=== PATIENT | female | born 2005 | race Caucasian/White ===

== ENCOUNTER 2024-01-27 15:07 | Outpatient (CLI) | payer OTHER, SELFPAY ==
[2024-01-28 00:09] LABS: Chlamydia DNA Amplified* NOT DETECTED (No Detected); GC DNA Amplified* NOT DETECTED (No Detected)
== END 2024-01-27 15:08 | disposition home or self-care (01) ==
LOC: NFLDUCREF 15:08
PROVIDERS: Visit Provider Physician Assistant
DX: R30.0 Dysuria (principal); Z11.3 Encounter for screening for infections with a predominantly sexual mode of transmission
CPT/HCPCS: 87086; 87491; 87591

== ENCOUNTER 2024-08-25 17:09 | Outpatient (CLI) | payer OTHER, SELFPAY ==
--- OUTSIDE RECORDS SUMMARY | 2024-08-25 17:10 | XMS_ITS | Continuity of Care Document ---
Author Name [facility] Organization [facility] Care Team Providers Care Manager Primary Name Role Phone [facility] Unavailable Unavailable Medications Combined list of outpatient medications from Department of [facility] and [facility] facilities.Medications provided include 1) outpatient medications from the last 15 months, and 2) patient-reported medications. Medication Details Route Status Patient Instructions Prescription Expires Prescription Number Last Dispense Date Ordering Provider Order Date Order Qty Source albuterol 90 mcg inhaler [8.5g] See Instruct ions, # 8.5 g, 0 total refill(s ), Hard Stop Ordered 04/26/2025 8.5 Ambul at [facility] Pharmac y EPINEPHrine (eqv-epi-pe n) 0.3mg autoinjecto r kit [2EA] See Instruct ions, # 2 EA, 0 total refill(s ), Hard Stop Ordered 02/20/2025 2.0 Ambul at ory Pharmac y FLUCONAZOLE (FLUCONAZOL E), 150 MG, TABLET, ORAL, [employer] PHARMA L, 12 ea. BLIST PACK Active [id number] 4 2023 2 Pharmac y Data Transac tion Service Facilit y Allergies, Adverse Reactions, Alerts Combined list of allergies from [facility] and [facility] facilities. It does not include entries that were removed or entered in error. Substance Category Reaction Severity Reaction type Status Date Reported Comments Source Peanuts Drug allergy Active Ambulatory Pharmacy Vital Signs Combined list of inpatient and outpatient Vital Signs from Department of [employer] and [facility], ranging from 12 months to all on record, depending upon the facility. Vital Sign Value Date Comments Source No data available for this section Ambulatory Pharmacy Encounters Combined list of: 1) Encounters from Department of Veterans Affairs facilities going back up to thelast 18 months. 2) Encounters from the Department of [facility] facilities going back up to 280 months. Location Location Details Encounter Type Encounter Number Reason For Visit Attending Provider ADM Date DC Date Status Disposition Source Ambulator y Pharmacy Lifetime Pharmacy [id number] 02/21 Ambulat ory Pharmac y Procedures Combined list of: 1) Procedures from Department of [facility] facilities going back up to thelast 18 months, not all [place] non-surgical procedures are included; 2) All procedures from the Department of Defense facilities. Procedure Procedure Type Code Date Perfomer Comments Sourc e No data available for this section Ambulatory P harmacy Social History Combined list of available smoking, tobacco, and other social history from Department of Defense and [facility] facilities. Social History Type Response Date Comment Sourc e This section is an empty social history section. DoD Assessment and Plan Combined list of future care activities from Department of Defense and Veterans Affairs facilities (e.g., assessment and plan notes, appointments, orders, and referrals). Additional future care activities may be listed in the Plan of Care section. Result Assessment and Plan Date Source Assessment and Plan No data available for this section 08/25/2024 Ambulatory Pharmacy Functional Status Combined list of recent functional and cognitive assessments recorded at [facility] of [facility] and [facility] ([place] Functional Blodgett Measurement (FIM) Scale: 1 = Total Assistance (Subject = 0% +), 2 = Maximal Assistance (Subject = 25% +), 3 = Moderate Assistance (Subject = 50% +), 4 = Minimal Assistance (Subject = 75% +), 5 = Supervision, 6 = Modified Blodgett (Device), 7 = Complete Blodgett (Timely, Safely). Assessment Date/Time Source Assessment Type Assessment Skill Assessment Score Assessment Details No data available for this section
--- OUTSIDE RECORDS SUMMARY | 2024-08-25 17:10 | XMS_ITS | Clinical Summary ---
Author Organization [facility] Address [address] [place], [place] [id number] Care Team Providers Care Supervisor Cutting And Boning Name Role Phone Pcp, No Primary Care Provider Unavailabl e Allergies No known active allergies Medications Medication Sig Dispensed Refills Start Date End Date Status B Complex Vitamins (vitamin B complex) tablet Take 1 tablet by mouth 1 (one) time each day. Active Ascorbic Acid (VITAMIN C ER PO) Take by mouth. Active Magnesium 500 MG tablet Take by mouth. Active VITAMIN D-VITAMIN K PO Take by mouth. Active Active Problems Problem Noted Date Diagnosed Date Bleeding after intercourse 02/23/2024 Assessment & Plan (02/23/2024 11:52 AM MDT): - No clear etiology identified on exam - Nuswab collected to rule out infectious causes, STDs - IUD strings seen, recommend US to confirm correct positioning - All questions answered. Family History Relation Name Status Comments Brother Alive Father Alive Mother Alive Social History Tobacco Use Types Packs/Day Years Used Date Smoking Tobacco: Never Smokeless Tobacco: Never Tobacco Cessation:Counseling Given: Not Answered Alcohol Use Standard Drinks/Week Comments Never 0 (1 standard drink = 0.6 oz pur e alcohol) Sex and Gender Information Value Date Recorded Sex Assigned at Not on file Gender Identity Not on file Sexual Orientation Not on file Last Filed Vital Signs Vital Sign Reading Time Taken Comments Blood Pressure 120/80 02/23/2024 11:07 AM MDT Pulse - - Temperature - - Respiratory Rate - - Oxygen Saturation - - Inhaled Oxygen Concentration - - Weight 66 kg (145 lb 9.6 oz) 02/23/2024 11:07 AM MDT Height 172.7 cm (5' 8) 02/23/2024 11:07 AM MDT Body Mass Index 22.14 02/23/2024 11:07 AM MDT Plan of Treatment Health Maintenance Due Date Last Done Comments HIV Screening 2004 Annual Physical 05/14/2007 COVID-19 Vaccine ( season) 2024 Influenza Vaccine (#1) 2024 09/12/2019, 2014 DTaP/Tdap/Td Vaccines (7 - Td or Tdap) 12/11/2025 12/11/2015, 11/20/2009, 02/09/2006, Additional history exists Zoster Vaccines (1 of 2) 2054 Hepatitis B Vaccines Completed 05/12/2005, 03/19/2005, 01/27/2005, Additional history exists Pneumococcal: Pediatrics (0 to 5 Yrs) and At-Risk Patients (6 to 64 Years) Completed 11/25/2005, 05/12/2005, 03/19/2005, Additional history exists MMR Vaccines Completed 12/06/2008, 02/09/2006 Varicella Vaccines Completed 12/06/2008, 11/25/2005 Hepatitis A Vaccines Completed 11/25/2012, 11/25/2011, 2004 HPV Vaccines Completed 01/05/2019, 12/28/2017 Meningococcal Vaccine Aged Out 05/31/2023, 016 No longer eligible based on patient's age to complete this topic Respiratory Syncytial Virus (RSV) <20 months Aged Out No longer eligible based on patient's age to complete this topic Care Teams Supervisor Cutting And Boning Relationship Specialty Start Date End Date Pcp, No PCP - General 02/01/24
--- OUTSIDE RECORDS SUMMARY | 2024-08-25 17:10 | XMS_ITS | Referral Summary ---
Author Organization [facility] Address [address] [place] [address] Care Team Providers Care Manager Personal Name Role Phone Unavailable Primary Care Provider Unavailabl e Allergies No known active allergies Medications No known medications Active Problems Problem Noted Date Diagnosed Date Concussion with no loss of consciousness, initia l encounter 09/18/2019 Social History Tobacco Use Types Packs/Day Years Used Date Smoking Tobacco: Never Assessed Comments Unknown Sex and Gender Information Value Date Recorded Sex Assigned at Not on file Legal Sex Female 6:21 AM PST Gender Identity Not on file Sexual Orientation Not on file Plan of Treatment Not on file Procedures Procedure Name Priority Date/Time Associated Diagnosis Comments PANORAMIC RADIOGRAPHIC IMAGE Routine 03/22/2023 2:00 PM MDT PROPHYLAXIS - ADULT Routine 03/22/2023 2 :00 PM MDT INTRAORAL - COMPREHENSIVE SERIES OF RADIOGRAPHIC IMAGES Routine 03/22/2023 2:00 PM MDT COMPREHENSIVE ORAL EVALUATION - NEW OR ESTABLISHED PATIENT Routine 03/22/2023 2:00 PM MDT TOPICAL APPLICATION OF FLUORIDE VARNISH Routine 09/08/2022 2:00 PM MDT from Last 3 Months or Most Recently Relevant to Health Maintenance Insurance [facility] [employer] KISHORE CHEN [id number] [facility] FEDERAL KISHORE CHEN [id number]
--- OUTSIDE RECORDS SUMMARY | 2024-08-25 17:10 | XMS_ITS | Clinical Summary ---
Author Organization [facility] Address [address] [place] [address] Care Team Providers Care Sampler And Test Preparer Name Role Phone Unavailable Primary Care Provider [...] Orientation Not on file Plan of Treatment Health Maintenance Due Date Last Done Comments Fluoride Varnish 03/09/2023 09/08/2022, , 08/08/2021, Additional history exists Dental Oral Exam 09/22/2023 03/22/2023, 09/2022, 02/25/2022, Additional history exists Dental Prophylaxis 09/22/2023 03/22/2023, 1 , 02/25/2022, Additional history exists Dental X-Ray: Bitewings 09/22/2023 03/22/2023 Dental X-Ray: Full Mouth 03/24/2026 03/23/2023, 04/2 02/2023 Dental X-Ray: Panoramic 03/24/2026 03/23/20, 03/22/2023, 08/08/2021, Additional history exists Procedures Procedure Name Priority Date/Time Associated Diagnosis [...] Most Recently Relevant to Health Maintenance Insurance KISHORE CHEN [id number] [facility] KISHORE CHEN [id number]
--- OUTSIDE RECORDS SUMMARY | 2024-08-25 17:11 | XMS_ITS | CCD ---
Author Organization [facility] Address [address] [place] [address] Care Team Providers Care Development And Housing Director Name Role Phone Unavailable Primary Care Provider [...]
--- OUTSIDE RECORDS SUMMARY | 2024-08-25 17:11 | XMS_ITS ---
Author Organization [facility] [place] [place] Address [address] [place] [address] Care Team Providers Care Water Purification Chemist Name Role Phone Unavailable Unavailable Unavailable Surgery Details Not on file Complications Check Surgery Details section. Procedure Estimated Blood Loss Check Surgery Details section. Procedure Findings Check Surgery Details section. Procedure Specimens Taken Check Surgery Details section.
--- OUTSIDE RECORDS SUMMARY | 2024-08-25 17:11 | XMS_ITS | Encounter Summary ---
Author Organization [facility] Address [address] [place] [address] Care Team Providers Care Comic Book Designer Name Role Phone Unavailable Primary Care Provider Unavailabl e Prior Encounters Date Type Department Care Team Description 03/22/2023 2:00 PM MDT Office Visit [facility] [address] [place] [phone] Zev Santos 09/08/2022 2:00 PM MDT Office Visit [facility] [address] [place] [phone] Bentley Baugh, VENKATESH MS 02/25/2022 Travel 02/25/2022 10:00 AM MDT Office Visit [facility] [address] [place] [phone] Bentley Baugh, VENKATESH MS 12/18/2019 Converted 13x Documents [facility] [address] [place] [phone] <No scans attached> 12/18/2019 Converted CPS Chart Documents [facility] [address] [place] [phone] <No scans attached> 12/18/2019 Converted CPS Chart Documents [facility] [address] [place] [phone] <No scans attached> 12/18/2019 Converted CPS Chart Documents [facility] [address] [place] [phone] <No scans attached> 12/18/2019 Converted 13x Documents [facility] [address] [phone] <No scans attached> 12/18/2019 Converted 13x Documents [facility] [address] [place] [address] <No scans attached> Plan of Treatment Not on file Procedures Procedure Name Priority Date/Time Associated Diagnosis Comments PROPHYLAXIS - ADULT Routine 03/22/2023 2 :00 PM MDT INTRAORAL PHOTO Routine 03/22/2023 2:00 PM MDT INTRAORAL PHOTO Routine 03/22/2023 2:00 PM MDT INTRAORAL PHOTO Routine 03/22/2023 2:00 PM MDT INTRAORAL PHOTO Routine 03/22/2023 2:00 PM MDT PANORAMIC RADIOGRAPHIC IMAGE Routine 03/22/2023 2:00 PM MDT INTRAORAL - COMPREHENSIVE SERIES OF RADIOGRAPHIC IMAGES Routine 03/22/2023 2:00 PM MDT COMPREHENSIVE ORAL EVALUATION - NEW OR ESTABLISHED PATIENT Routine 03/22/2023 2:00 PM MDT PERIODIC ORAL EVALUATION - ESTABLISHED PATIENT Routine 09/08/2022 2:00 PM MDT BITEWINGS - FOUR RADIOGRAPHIC IMAGES Routine 09/08/2022 2:00 PM MDT SINGLE X-RAY Routine 09/08/2022 2:00 PM MDT PROPHYLAXIS - ADULT Routine 09/08/2022 2 :00 PM MDT TOPICAL APPLICATION OF FLUORIDE VARNISH Routine 09/08/2022 2:00 PM MDT ORAL HYGIENE INSTRUCTIONS Routine 2021 2:00 PM MDT ADDITIONAL X-RAY Routine 09/08/2022 2:00 PM MDT PROPHYLAXIS - CHILD Routine 02/25/2022 1 0:00 AM MDT TOPICAL APPLICATION OF FLUORIDE VARNISH Routine 02/25/2022 10:00 AM MDT ORAL HYGIENE INSTRUCTIONS Routine 2021 10:00 AM MDT PERIODIC ORAL EVALUATION - ESTABLISHED PATIENT Routine 02/25/2022 10:00 AM MDT ORAL SURG CONSULT Routine 10/22/2021 1:0 0 AM MST 32 REMOVAL OF IMPACTED TOOTH - COMPLETELY BONY Routine 10/22/2021 1:00 AM MST 17 REMOVAL OF IMPACTED TOOTH - COMPLETELY BONY Routine 10/22/2021 1:00 AM MST 16 REMOVAL OF IMPACTED TOOTH - COMPLETELY BONY Routine 10/22/2021 1:00 AM MST 1 REMOVAL OF IMPACTED TOOTH - COMPLETELY BONY Routine 10/22/2021 1:00 AM MST THERAPEUTIC PARENTERAL DRUGS, TWO OR MORE ADMINISTRATIONS, DIFFERENT MEDICATIONS Routine 10/22/2021 1:00 AM MST DEEP SEDATION/GENERAL ANESTHESIA ? EACH SUBSEQUENT 15 MINUTE INCREMENT Routine 10/22/2021 1:00 AM MST DEEP SEDATION/GENERAL ANESTHESIA ? EACH SUBSEQUENT 15 MINUTE INCREMENT Routine 10/22/2021 1:00 AM MST DEEP SEDATION/GENERAL ANESTHESIA ? FIRST 15 MINUTES Routine 10/22/2021 1:00 AM MST TOPICAL APPLICATION OF FLUORIDE VARNISH Routine 08/08/2021 1:00 AM MDT PROPHYLAXIS - CHILD Routine 08/08/2021 1 :00 AM MDT ORAL HYGIENE INSTRUCTIONS Routine 2020 1:00 AM MDT PANORAMIC RADIOGRAPHIC IMAGE Routine 08/08/2021 1:00 AM MDT BITEWINGS - FOUR RADIOGRAPHIC IMAGES Routine 08/08/2021 1:00 AM MDT ADDITIONAL X-RAY Routine 08/08/2021 1:00 AM MDT SINGLE X-RAY Routine 08/08/2021 1:00 AM MDT PERIODIC ORAL EVALUATION - ESTABLISHED PATIENT Routine 08/08/2021 1:00 AM MDT TOPICAL APPLICATION OF FLUORIDE VARNISH Routine 07/04/2020 1:00 AM MDT PROPHYLAXIS - CHILD Routine 07/04/2020 1 :00 AM MDT ORAL HYGIENE INSTRUCTIONS Routine 2019 1:00 AM MDT BITEWINGS - FOUR RADIOGRAPHIC IMAGES Routine 07/04/2020 1:00 AM MDT ADDITIONAL X-RAY Routine 07/04/2020 1:00 AM MDT SINGLE X-RAY Routine 07/04/2020 1:00 AM MDT PERIODIC ORAL EVALUATION - ESTABLISHED PATIENT Routine 07/04/2020 1:00 AM MDT TOPICAL APPLICATION OF FLUORIDE VARNISH Routine 01/23/2020 1:00 AM MST PROPHYLAXIS - CHILD Routine 01/23/2020 1 :00 AM MST ORAL HYGIENE INSTRUCTIONS Routine 2019 1:00 AM MST PERIODIC ORAL EVALUATION - ESTABLISHED PATIENT Routine 01/23/2020 1:00 AM MST MISSED APPOINTMENT Routine 01/17/2020 1: 00 AM MST TREATMENT COMPLETE Routine 01/16/2020 1: 00 AM MST PERIODIC ORTHODONTIC TREATMENT VISIT Routine 12/26/2019 1:00 AM MST PERIODIC ORTHODONTIC TREATMENT VISIT Routine 11/28/2019 1:00 AM MST PERIODIC ORTHODONTIC TREATMENT VISIT Routine 10/31/2019 1:00 AM MST PERIODIC ORTHODONTIC TREATMENT VISIT Routine 09/25/2019 1:00 AM MDT CANCELLED APPOINTMENT Routine 09/11/2019 1:00 AM MDT PERIODIC ORTHODONTIC TREATMENT VISIT Routine 08/24/2019 1:00 AM MDT PERIODIC ORTHODONTIC TREATMENT VISIT Routine 07/26/2019 1:00 AM MDT TOPICAL APPLICATION OF FLUORIDE VARNISH Routine 07/11/2019 1:00 AM MDT PROPHYLAXIS - CHILD Routine 07/11/2019 1 :00 AM MDT ORAL HYGIENE INSTRUCTIONS Routine 2018 1:00 AM MDT BITEWINGS - FOUR RADIOGRAPHIC IMAGES Routine 07/11/2019 1:00 AM MDT ADDITIONAL X-RAY Routine 07/11/2019 1:00 AM MDT SINGLE X-RAY Routine 07/11/2019 1:00 AM MDT PERIODIC ORAL EVALUATION - ESTABLISHED PATIENT Routine 07/11/2019 1:00 AM MDT PERIODIC ORTHODONTIC TREATMENT VISIT Routine 06/27/2019 1:00 AM MDT PERIODIC ORTHODONTIC TREATMENT VISIT Routine 05/22/2019 1:00 AM MDT PERIODIC ORTHODONTIC TREATMENT VISIT Routine 04/27/2019 1:00 AM MDT PERIODIC ORTHODONTIC TREATMENT VISIT Routine 03/23/2019 1:00 AM MDT PERIODIC ORTHODONTIC TREATMENT VISIT Routine 02/22/2019 1:00 AM MDT CANCELLED APPOINTMENT Routine 02/09/2019 1:00 AM MDT PERIODIC ORTHODONTIC TREATMENT VISIT Routine 01/26/2019 1:00 AM MST TOPICAL APPLICATION OF FLUORIDE VARNISH Routine 01/11/2019 1:00 AM MST PROPHYLAXIS - CHILD Routine 01/11/2019 1 :00 AM MST ORAL HYGIENE INSTRUCTIONS Routine 2018 1:00 AM MST PERIODIC ORAL EVALUATION - ESTABLISHED PATIENT Routine 01/11/2019 1:00 AM MST PERIODIC ORTHODONTIC TREATMENT VISIT Routine 01/02/2019 1:00 AM MST CANCELLED APPOINTMENT Routine 12/26/2018 1:00 AM MST PERIODIC ORTHODONTIC TREATMENT VISIT Routine 11/28/2018 1:00 AM MST CANCELLED APPOINTMENT Routine 11/24/2018 1:00 AM MST PERIODIC ORTHODONTIC TREATMENT VISIT Routine 10/26/2018 1:00 AM MST PERIODIC ORTHODONTIC TREATMENT VISIT Routine 09/08/2018 1:00 AM MDT ORAL-B ESSENTIAL KIT Routine 07/27/2018 1:00 AM MDT NON-CONTRACT ONLY - MISCELLANEOUS ORTHODONTIC PROCEDURE Routine 07/27/2018 1:00 AM MDT NON-CONTRACT ONLY - MISCELLANEOUS ORTHODONTIC PROCEDURE Routine 07/27/2018 1:00 AM MDT INTRAORAL PHOTO Routine 07/27/2018 1:00 AM MDT SELF-LIGATING BRACKETS Routine 8 1:00 AM MDT 2D CEPHALOMETRIC RADIOGRAPHIC IMAGE ? ACQUISITION, MEASUREMENT AND ANALYSIS Routine 07/27/2018 1:00 AM MDT PANORAMIC RADIOGRAPHIC IMAGE Routine 07/27/2018 1:00 AM MDT COMPREHENSIVE ORTHODONTIC TREATMENT OF THE ADOLESCENT DENTITION - 18M Routine 07/27/2018 1:00 AM MDT PRE-ORTHODONTIC TREATMENT EXAMINATION TO MONITOR GROWTH AND DEVELOPMENT Routine 07/07/2018 1:00 AM MDT TOPICAL APPLICATION OF FLUORIDE VARNISH Routine 07/06/2018 1:00 AM MDT PROPHYLAXIS - CHILD Routine 07/06/2018 1 :00 AM MDT ORAL HYGIENE INSTRUCTIONS Routine 2017 1:00 AM MDT 18 SEALANT REPAIR ? PER TOOTH Routine 07/06/2018 1:00 AM MDT 15 SEALANT REPAIR ? PER TOOTH Routine 07/06/2018 1:00 AM MDT 2 SEALANT REPAIR ? PER TOOTH Routine 07/06/2018 1:00 AM MDT BITEWINGS - FOUR RADIOGRAPHIC IMAGES Routine 07/06/2018 1:00 AM MDT PERIODIC ORAL EVALUATION - ESTABLISHED PATIENT Routine 07/06/2018 1:00 AM MDT TOPICAL APPLICATION OF FLUORIDE VARNISH Routine 01/05/2018 1:00 AM MST PROPHYLAXIS - CHILD Routine 01/05/2018 1 :00 AM MST ORAL HYGIENE INSTRUCTIONS Routine 2017 1:00 AM MST 18 SEALANT 2ND MOLAR Routine 01/05/2018 1:00 AM MST 15 SEALANT 2ND MOLAR Routine 01/05/2018 1:00 AM MST 2 SEALANT 2ND MOLAR Routine 01/05/2018 1 :00 AM MST BITEWINGS - FOUR RADIOGRAPHIC IMAGES Routine 01/05/2018 1:00 AM MST PERIODIC ORAL EVALUATION - ESTABLISHED PATIENT Routine 01/05/2018 1:00 AM MST TOPICAL APPLICATION OF FLUORIDE VARNISH Routine 06/30/2017 1:00 AM MDT PROPHYLAXIS - CHILD Routine 06/30/2017 1 :00 AM MDT ORAL HYGIENE INSTRUCTIONS Routine 2016 1:00 AM MDT BITEWINGS - FOUR RADIOGRAPHIC IMAGES Routine 06/30/2017 1:00 AM MDT PERIODIC ORAL EVALUATION - ESTABLISHED PATIENT Routine 06/30/2017 1:00 AM MDT INHALATION OF NITROUS OXIDE/ANALGESIA, ANXIOLYSIS Routine 05/14/2017 1:00 AM MDT C EXTRACTION, ERUPTED TOOTH OR EXPOSED ROOT (ELEVATION AND/OR FORCEPS REMOVAL) Routine 05/14/2017 1:00 AM MDT A EXTRACTION, ERUPTED TOOTH OR EXPOSED ROOT (ELEVATION AND/OR FORCEPS REMOVAL) Routine 05/14/2017 1:00 AM MDT ADDITIONAL X-RAY Routine 05/14/2017 1:00 AM MDT SINGLE X-RAY Routine 05/14/2017 1:00 AM MDT PITCH FLAKER CONSULTATION Routine 2016 1:00 AM MDT PRE-ORTHODONTIC TREATMENT EXAMINATION TO MONITOR GROWTH AND DEVELOPMENT Routine 05/11/2017 1:00 AM MDT LIMITED ORAL EVALUATION - PROBLEM FOCUSED Routine 04/28/2017 1:00 AM MDT PANORAMIC RADIOGRAPHIC IMAGE Routine 04/28/2017 1:00 AM MDT SINGLE X-RAY Routine 04/28/2017 1:00 AM MDT TOPICAL APPLICATION OF FLUORIDE VARNISH Routine 12/30/2016 1:00 AM MST PROPHYLAXIS - CHILD Routine 12/30/2016 1 :00 AM MST ORAL HYGIENE INSTRUCTIONS Routine 2016 1:00 AM MST PERIODIC ORAL EVALUATION - ESTABLISHED PATIENT Routine 12/30/2016 1:00 AM MST BITEWINGS - FOUR RADIOGRAPHIC IMAGES Routine 10/16/2016 1:00 AM MST TOPICAL APPLICATION OF FLUORIDE VARNISH Routine 06/24/2016 1:00 AM MDT PROPHYLAXIS - CHILD Routine 06/24/2016 1 :00 AM MDT ORAL HYGIENE INSTRUCTIONS Routine 2015 1:00 AM MDT PERIODIC ORAL EVALUATION - ESTABLISHED PATIENT Routine 06/24/2016 1:00 AM MDT TOPICAL APPLICATION OF FLUORIDE VARNISH Routine 12/10/2015 1:00 AM MST PROPHYLAXIS - CHILD Routine 12/10/2015 1 :00 AM MST ORAL HYGIENE INSTRUCTIONS Routine 2015 1:00 AM MST PERIODIC ORAL EVALUATION - ESTABLISHED PATIENT Routine 12/10/2015 1:00 AM MST 30 SEALANT 1ST MOLAR Routine 06/10/2015 1:00 AM MDT 19 SEALANT 1ST MOLAR Routine 06/10/2015 1:00 AM MDT 14 SEALANT 1ST MOLAR Routine 06/10/2015 1:00 AM MDT 3 SEALANT 1ST MOLAR Routine 06/10/2015 1 :00 AM MDT TOPICAL APPLICATION OF FLUORIDE VARNISH Routine 06/07/2015 1:00 AM MDT PROPHYLAXIS - CHILD Routine 06/07/2015 1 :00 AM MDT COMPREHENSIVE ORAL EVALUATION - NEW OR ESTABLISHED PATIENT Routine 06/07/2015 1:00 AM MDT ORAL HYGIENE INSTRUCTIONS Routine 2014 1:00 AM MDT PANORAMIC RADIOGRAPHIC IMAGE Routine 06/07/2015 1:00 AM MDT BITEWINGS - FOUR RADIOGRAPHIC IMAGES Routine 06/07/2015 1:00 AM MDT Visit Diagnoses Not on file Insurance [employer] [id number] [employer] [place] [employer] [facility] [place] [phone] [place] [address] [address] [place] [facility] [place] KISHORE CHEN [id number]
[2024-08-25 23:12] LABS: Chlamydia DNA Amplified* NOT DETECTED (No Detected); GC DNA Amplified* NOT DETECTED (No Detected)
== END 2024-08-25 17:10 | disposition home or self-care (01) ==
LOC: NFLDUCREF 17:09
PROVIDERS: Visit Provider Nurse Practitioner
DX: R30.0 Dysuria (principal); Z11.3 Encounter for screening for infections with a predominantly sexual mode of transmission
CPT/HCPCS: 87491; 87591